=== PATIENT | male | born 1980 | race African-American/Black ===

== ENCOUNTER 2017-01-22 23:30 | Emergency (ER) | payer BC ==
[~2017-01-22 23:30] MED LIST: DENIES MEDS
== END 2017-01-23 02:49 | disposition home or self-care (01) ==
LOC: ER 23:30
DX: R11.2 Nausea with vomiting, unspecified (principal); I10 Essential (primary) hypertension; F17.200 Nicotine dependence, unspecified, uncomplicated
CPT/HCPCS: 99284; A9270-GY